=== PATIENT | female | born 1990 | race Native Hawaiian/Other Pacific Islander ===

== ENCOUNTER 2019-04-02 23:55 | Observation (INO) | payer OTHER ==
[~2019-04-02] VITALS: Ht 157.5 cm; Wt 113.4 kg
[2019-04-03 00:10] VITALS: BP 133/86; TEMP 97.7
[2019-04-03 01:14] LABS: PLATELET COUNT 292 K/uL (152-353)
[2019-04-03 01:31] LABS: POTASSIUM 3.5 mmol/L (3.6-5.2); SODIUM 137 mmol/L (136-145)
[2019-04-03 03:55] VITALS: BP 96/70; TEMP 97.7; Ht 157.5 cm; Wt 113.4 kg
[2019-04-03 04:00] VITALS: BP 96/70; TEMP 97.8
[2019-04-03] MEDS ORDERED: SERT50TA PO (04:20)
[2019-04-03 08:00] VITALS: BP 138/70; TEMP 98.1
[2019-04-03 12:00] VITALS: BP 117/72; TEMP 98
[2019-04-03 16:00] VITALS: BP 117/75; TEMP 98
== END 2019-04-03 18:20 | disposition short-term general hospital (02) ==
LOC: ED 23:55 → MED/SURG 04-03 02:50
PROVIDERS: ADMIT Emergency Medicine
DX: G40.802 Other epilepsy, not intractable, without status epilepticus (principal); I42.8 Other cardiomyopathies; G83.84 Todd's paralysis (postepileptic)
CPT/HCPCS: 36415; 80053; 80307; 82550; 82553; 84443; 84484; 85027; 99220; 99283; G0378; J1953